=== PATIENT | male | born 1970 | race Caucasian/White ===

== ENCOUNTER 2023-02-23 19:42 | Emergency (ER) | payer SELFPAY ==
[2023-02-23 19:48] VITALS: BP 166/99; PULSE 81; RESP 18; TEMP 36.6; O2SAT 96; BMI 29.5
[2023-02-23 20:00] VITALS: BP 161/109; PULSE 83; RESP 18; O2SAT 96
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
[2023-02-23 20:10] VITALS: BP 161/94; PULSE 85; RESP 18; O2SAT 95
[2023-02-23 20:20] VITALS: BP 170/92; PULSE 79; RESP 18; O2SAT 94
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
--- NOTE | 2023-02-23 21:40 | ED.NURSE ---
Pt continues to remove blood pressure cuff and pulse oximeter. Pt asked to keep BP cuff and pulse oximeter on, in order to obtain vital signs every 10 minutes d/t TTA protocol. Pt states BP cuff is itching and will try to keep cuff on.
[2023-02-23 21:50] VITALS: BP 158/118; PULSE 84; RESP 18; O2SAT 96
[2023-02-23 22:00] VITALS: BP 178/99; PULSE 83; RESP 18; O2SAT 94
--- NOTE | 2023-02-23 22:37 | ED.NURSE ---
Pt has ortho follow-up appointment on 02/25 in [facility] at [address] Lanza.
--- NOTE | 2023-02-23 22:45 | ED.NURSE ---
Orthoglass splint applied by . Crutches adjusted and given to pt. Pt tolerating. Pt given work note.
== END 2023-02-23 22:55 | disposition home or self-care (01) ==
PROVIDERS: Emergency Provider Emergency Medicine
DX: S82.892A Other fracture of left lower leg, initial encounter for closed fracture (principal); S09.90XA Unspecified injury of head, initial encounter; S89.92XA Unspecified injury of left lower leg, initial encounter; V00.848A Other accident with standing micro-mobility pedestrian conveyance, initial encounter
CPT/HCPCS: 29515; 70450; 73562; 73610; 99283; 99284; 99285; 99291

== ENCOUNTER 2024-02-28 16:42 | Emergency (ER) | payer MEDICAID, SELFPAY ==
[2024-02-28] VITALS (46 sets, daily range): BP systolic 102–134; BP diastolic 53–102; PULSE 58–131; RESP 18–20; TEMP 36.7; O2SAT 88–96
[2024-02-28 17:13] LABS: Lactate* 1.9 mmol/L (0.5-1.9)
[2024-02-28 17:14] LABS: Basophils Percent Auto 0.2 % (0.0-3.0); Eosinophils Percent Auto 1.5 % (0.0-7.0); Hematocrit 36.7 % (37.0-53.0); Hemoglobin* 12.3 gm/dL (13.5-17.5); Immature Granulocytes Pct Auto 0.8 %; Mean Corpuscular HGB Conc 34 gm/dL (32-36); Mean Corpuscular Hemoglobin 30 pg (26-34); Mean Corpuscular Volume 88 fL (80-100); Monocytes Percent Auto 8.8 % (0.0-11.0); Neutrophils Percent Auto 66.7 % (42.0-72.0); Platelet Count* 429 K/uL (140-440); RDW Coefficient of Variation % 12.9 % (11.5-15.5); Red Blood Count 4.15 m/uL (4.30-5.90); White Blood Count* 16.86 K/uL (4.50-11.00)
--- NOTE | 2024-02-28 17:17 | ED_ITS ---
HPI - General Adult General Date Seen: 02/28/24 Chief complaint: Post Op Complication Stated complaint: received call to go to hospital [facility] from [facility] Time Seen by Provider: 02/28/24 16:59 Source: patient Mode of arrival: ambulatory Limitations: no limitations History of Present Illness HPI narrative: Patient is a 53-year-old male presenting to the emergency department because he was told to told to return to [facility] immediately for concerns of infection on his new aortic valve. He states he received a phone call was 20 minutes prior to arrival he needs to return to [facility] immediately because there is concerned he has infection on his new valve. He was just discharged from there about 2 or 3 hours ago. He states do not have a ride to [facility] certain came to [facility] instead because he lives in the area. Denies fevers, chills, shortness of breath. Has occasional episodes of chest pain but currently is pain-free. Does have a history of irregular heart rate that he states has not required cardioversion before but has improved with medications. Related Data Home Medications ?Medication ?Instructions ?Recorded ?Confirmed aspirin 81 mg capsule 81 mg PO DAILY 02/23/23 05/08/23 Allergies Allergy/AdvReac Type Severity Reaction Status Date / Time atorvastatin Allergy Unknown Verified 05/08/23 10:34 lisinopril Allergy Unknown Verified 05/08/23 10:34 [facility] Medical History History of myocardial infarction ?I25.2 - Old myocardial infarction (ICD-10) Surgical History History of heart artery stent (~2016) ?Z95.5 - Presence of coronary angioplasty implant and graft (ICD-10) Social History (Reviewed 05/08/23 @ 10:34 by Soha Mcneil ~ [facility]) Narrative: does not have regular exercise regimen no PCP, fired from [employer] [facility] due to bad bill single, unloads trucks, [place], 1 child social drinker- 10/week tobacco abuse- 10/day, hx 25 pack years Smoking Status: Current every day smoker What tobacco products do you use: cigarettes Smoking packs per day: 1 Smoking cigarettes per day: 20.0 Years smoked: 30 Smoking pack-years: 30.00 Do you use any of these nicotine containing products: None Second hand tobacco smoke exposure: No How often do you have a drink containing alcohol: 4 or more times a week AUDIT-C Alcohol total score: 4 Non-prescribed substance use: marijuana (any form) service: No Exam Narrative: Exam Narrative: Const: Well-nourished, Well-developed, in no distress Eyes: PERRL, no conjunctival injection, and symmetrical lids HENT: Atraumatic external nose and ears. Moist mucous membranes. Neck: Symmetric, trachea midline, No thyromegaly. CVS: Irregular in tachycardic rhythm No murmurs or gallops. Peripheral pulses 2+ and equal in all extremities RESP: Unlabored respiratory effort. Clear to auscultation bilaterally. GI: Nontender/Nondistended, No rebound or guarding. MSK:Extremities w/o deformity, Normal Active ROM Skin: Warm, Dry. Well-healing surgical scar Neuro: Normal Muscle tone, No focal neurological deficits. Psych: Awake, Alert, & Oriented x3. Appropriate mood and affect. Const: Vital Signs, click to edit/add: Vital Signs - 24 hr 02/28/24 16:55 02/28/24 16:58 02/28/24 16:59 Temperature 98.0 F Pulse Rate 113 H 113 H Pulse Rate [Left P ulse Oximeter] 131 H Respiratory Rate 18 Blood Pressure 127/92 H Blood Pressure [Le ft Upper Arm] 127/92 H Pulse Oximetry 95 95 95 Oxygen Delivery Me thod Room Air 02/28/24 17:00 02/28/24 17:07 02/28/24 17:15 Temperature Pulse Rate 108 H 108 H 94 Pulse Rate [Left P ulse Oximeter] Respiratory Rate Blood Pressure 115/80 Blood Pressure [Le ft Upper Arm] Pulse Oximetry 94 95 93 Oxygen Delivery Me thod 02/28/24 17:17 02/28/24 17:30 02/28/24 17:32 Temperature Pulse Rate 101 H 96 91 Pulse Rate [Left P ulse Oximeter] Respiratory Rate Blood Pressure 133/77 112/67 Blood Pressure [Le ft Upper Arm] Pulse Oximetry 93 92 93 Oxygen Delivery Me thod 02/28/24 17:45 02/28/24 17:47 02/28/24 18:00 Temperature Pulse Rate 111 H 122 H 104 H Pulse Rate [Left P ulse Oximeter] Respiratory Rate Blood Pressure 102/67 Blood Pressure [Le ft Upper Arm] Pulse Oximetry 95 94 91 Oxygen Delivery Me thod 02/28/24 18:02 02/28/24 18:15 02/28/24 18:17 Temperature Pulse Rate 99 104 H 95 Pulse Rate [Left P ulse Oximeter] Respiratory Rate Blood Pressure 130/83 126/75 Blood Pressure [Le ft Upper Arm] Pulse Oximetry 95 95 94 Oxygen Delivery Me thod 02/28/24 18:30 02/28/24 18:32 02/28/24 18:33 Temperature Pulse Rate 93 78 96 Pulse Rate [Left P ulse Oximeter] Respiratory Rate Blood Pressure 127/68 Blood Pressure [Le ft Upper Arm] Pulse Oximetry 95 94 94 Oxygen Delivery Me thod 02/28/24 18:45 02/28/24 18:47 02/28/24 19:00 Temperature Pulse Rate 73 70 100 Pulse Rate [Left P ulse Oximeter] Respiratory Rate Blood Pressure 105/53 L Blood Pressure [Le ft Upper Arm] Pulse Oximetry 94 94 91 Oxygen Delivery Me thod Course Vital Signs Vital signs: Initial Vital Signs Temperature 98.0 F 02/28/24 16:55 Temperature Source Temporal Artery Scan 02/28/24 16:55 Pulse Rate 131 H 02/28/24 16:55 Pulse Rhythm Regular 02/28/24 16:55 Pulse Strength 3+ Normal 02/28/24 16:55 Respiratory Rate 18 02/28/24 16:55 Blood Pressure 127/92 H 02/28/24 16:55 Blood Pressure Mean 103 02/28/24 16:55 Blood Pressure Position Semi-Fowlers 02/28/24 16:55 Pulse Oximetry 95 02/28/24 16:55 Oxygen Delivery Method Room Air 02/28/24 16:55 Vital Signs Temperature 98.0 F 02/28/24 16:55 Pulse Rate 131 H 02/28/24 16:55 Respiratory Rate 18 02/28/24 16:55 Blood Pressure 127/92 H 02/28/24 16:55 Pulse Oximetry 95 02/28/24 16:55 Oxygen Delivery Method Room Air 02/28/24 16:55 Temperature 98.0 F 02/28/24 16:55 Pulse Rate 100 02/28/24 19:00 Respiratory Rate 18 02/28/24 16:55 Blood Pressure 105/53 L 02/28/24 18:47 Pulse Oximetry 91 08/16/24 19:00 Oxygen Delivery Method Room Air 02/28/24 16:55 Medications Administered Medications: Generic Name Dose Route Start Last Admin Trade Name Freq PRN Reason Stop Dose Admin Diltiazem HCl 125 mg/ Sodium 125 mls @ 5 mls/hr 02/28/24 17:45 02/28/24 18:35 Chloride IVPB 5 mls/hr .TITRATE LYNETTE Administration Protocol Heparin Sodium/Dextrose 25,000 unit in 500 mls @ 0 mls/hr 02/28/24 18:00 02/28/24 18:35 Heparin IV 1,000 unit/hr .Q0M LYNETTE 20 mls/hr Administration Protocol Per Protocol Discontinued Medications Generic Name Dose Route Start Last Admin Trade Name Freq PRN Reason Stop Dose Admin Heparin Sodium (Porcine) 4,000 unit 02/28/24 17:51 02/28/24 18:22 Heparin 5,000 Unit/0.5 Ml Inj IVP 02/28/24 17:52 4,000 unit ONCE ONE Administration Vancomycin/PEG/NADA/Lysine/Water 1.75 gm in 350 mls @ 200 mls/hr 02/28/24 17:43 02/28/24 18:33 Vancomycin 1.75 Gm/350 Ml IVPB 02/28/24 19:27 200 mls/hr ONCE ONE Administration Protocol Ceftriaxone Sodium 2 gm/ 100 mls @ 200 mls/hr 02/28/24 17:43 02/28/24 19:47 Sodium Chloride IVPB 02/28/24 17:44 Infused ONCE ONE Infusion Medical Decision Making MDM Narrative Medical decision making narrative: Patient is a 53-year-old male presenting for concern of a valve infection and a flutter. EKG, troponin, CBC, BMP all ordered.Was able to speak to the on-call cardiothoracic surgeon at [facility] he states from his understanding it was the [place] valve that appeared infected and not the new valve that was placed. He does agree that the patient should be transferred. I then spoke to Cardiology about the patient is a flutter. He states the patient had a flutter prior to discharge it was actually relatively tacky with it. He was given amiodarone there but this time recommends doing heparin and rate control. I will also start the patient on empiric antibiotics for endocarditis in this includes vancomycin and Rocephin. EKG returns showing a flutter with a rate of 129 beats per minute. I do not see any obvious signs of a STEMI. The 2 May have some slight elevation but concerned he just had bypass surgery is unlikely to be blocked again so quickly. I informed the chiropractic neurologist of the EKG findings and my interpretation of it and he agrees with me. The chiropractic neurologist did not personally view the EKG. Troponins at 0.14 but again he just had surgery this is likely still from the surgery. Patient is not having any chest pain at this time. Was start him on Cardizem. White blood cell count was 16.86 doses consistent with his previous white blood cell count this morning at [facility]. Lab Data Labs: Lab Results 02/28/24 02/28/24 02/28/24 Range/Units 17:00 17:07 17:51 WBC 16.86 H Cancelled (4.50-11.00) K/uL RBC 4.15 L Cancelled (4.30-5.90) m/uL Hgb 12.3 L Cancelled (13.5-17.5) gm/dL Hct 36.7 L Cancelled (37.0-53.0) % MCV 88 Cancelled (80-100) fL MCH 30 Cancelled (26-34) pg MCHC 34 Cancelled (32-36) gm/dL RDW Coeff of Michelle 12.9 (11.5-15.5) % Plt Count 429 Cancelled (140-440) K/uL Neut % (Auto) 66.7 (42.0-72.0) % Lymph % (Auto) 22.0 (20-44) % Morrill % (Auto) 8.8 (0.0-11.0) % Eos % (Auto) 1.5 (0.0-7.0) % Baso % (Auto) 0.2 (0.0-3.0) % Neut # (Auto) 11.20 H (1.7-7.0) K/uL Lymph # (Auto) 3.70 H (0.90-2.90) K/uL Morrill # (Auto) 1.50 H (0.00-0.90) K/UL Eos # (Auto) 0.30 (0.00-0.50) K/uL Baso # (Auto) 0.00 (0.00-0.30) K/uL Abs Immat Gran (auto) 0.10 (0.00-0.30) K/uL Imm/Tot Granulo (auto) 0.8 % INR 1.08 (0.91-1.10) APTT 29 (23-33) Seconds Sodium 136 (135-149) mmol/L Potassium 3.6 (3.6-5.1) mmol/L Chloride 101 (96-114) mmol/L Carbon Dioxide 27 (20-32) mmol/L Anion Gap 8 (7-15) mEq/L BUN 17 (7-30) mg/dL Creatinine 0.8 (0.5-1.5) mg/dL Estimated GFR 106 ml/min Glucose 142 H (60-115) mg/dL Lactate 1.9 (0.5-1.9) mmol/L Calcium 9.2 (8.4-10.6) mg/dL POC Troponin I 0.14 H (0.01-0.04) ng/ml 02/28/24 Range/Units 19:22 WBC (4.50-11.00) K/uL RBC (4.30-5.90) m/uL Hgb (13.5-17.5) gm/dL Hct (37.0-53.0) % MCV (80-100) fL MCH (26-34) pg MCHC (32-36) gm/dL RDW Coeff of Michelle (11.5-15.5) % Plt Count (140-440) K/uL Neut % (Auto) (42.0-72.0) % Lymph % (Auto) (20-44) % Morrill % (Auto) (0.0-11.0) % Eos % (Auto) (0.0-7.0) % Baso % (Auto) (0.0-3.0) % Neut # (Auto) (1.7-7.0) K/uL Lymph # (Auto) (0.90-2.90) K/uL Morrill # (Auto) (0.00-0.90) K/UL Eos # (Auto) (0.00-0.50) K/uL Baso # (Auto) (0.00-0.30) K/uL Abs Immat Gran (auto) (0.00-0.30) K/uL Imm/Tot Granulo (auto) % INR (0.91-1.10) APTT (23-33) Seconds Sodium (135-149) mmol/L Potassium (3.6-5.1) mmol/L Chloride (96-114) mmol/L Carbon Dioxide (20-32) mmol/L Anion Gap (7-15) mEq/L BUN (7-30) mg/dL Creatinine (0.5-1.5) mg/dL Estimated GFR ml/min Glucose (60-115) mg/dL Lactate (0.5-1.9) mmol/L Calcium (8.4-10.6) mg/dL POC Troponin I 0.13 H (0.01-0.04) ng/ml ECG Data Attestation: I personally reviewed and interpreted this ECG as follows: Prior ECG tracings: not available for review Interpretation: He EKG at 16:57 atrial flutter with variable AV block rate of 129 beats per minute, normal axis, no obvious ST or T-wave abnormalities. I disagree with the computer interpretation I do not see signs of a STEMI EKG at 19:16 a father with then AV block with a rate 112 beats per minute, normal axis, no ST or T-wave abnormalities. I disagree with the computer interpretation and not see signs of a STEMI Discharge Plan Discharge Clinical Impression: Atrial flutter Qualifiers: Atrial flutter type: unspecified Qualified Code(s): I48.92 - Unspecified atrial flutter Patient Disposition: [facility] Condition: Stable Prescriptions: No Action aspirin 81 mg capsule 81 mg PO DAILY Follow Up/Referrals: Provider,Not a Local [Primary Care Provider] - Stand Alone Forms: [employer] Info Instructions
[2024-02-28 17:18] LABS: Slide Review Reflex No
[2024-02-28 17:26] LABS: Troponin, Point-of-Care* 0.14 ng/ml (0.01-0.04)
[2024-02-28 17:30] LABS: Chloride* 101 mmol/L (96-114); Potassium* 3.6 mmol/L (3.6-5.1); Sodium* 136 mmol/L (135-149)
[2024-02-28 17:33] LABS: Anion Gap 8 mEq/L (7-15); Blood Urea Nitrogen* 17 mg/dL (7-30); Carbon Dioxide* 27 mmol/L (20-32); Creatinine* 0.8 mg/dL (0.5-1.5); Estimated Glomerular Filt Rate 106 ml/min; Glucose* 142 mg/dL (60-115)
[2024-02-28 17:34] LABS: Calcium* 9.2 mg/dL (8.4-10.6)
[2024-02-28 18:22] LABS: INR 1.08 (0.91-1.10); Prothrombin Time 14.6 Seconds
[2024-02-28] MEDS: HEPARIN 5,000 UNIT/0.5 ML INJ 4000 UNIT IVP (18:22)
[2024-02-28 18:23] LABS: Partial Thromboplastin Time* 29 Seconds (23-33)
[2024-02-28] MEDS: VANCOMYCIN 1.75 GM/350 ML 1.75 GM/350 ML PIGGYBACK IVPB (18:33)
[2024-02-28] MEDS: dilTIAZem HCL 125 MG in 0.9 % SODIUM CHLORIDE 100 ml 100 ML IVPB (18:35)
[2024-02-28] MEDS: HEPARIN 25,000 UNIT/500 ML BAG 20 UNIT IV (18:35)
[2024-02-28] MEDS: cefTRIAXone 2 GM in 0.9 % SODIUM CHLORIDE Mini-bag 100 ML IVPB (18:49)
[2024-02-28 19:48] LABS: Troponin, Point-of-Care* 0.13 ng/ml (0.01-0.04)
== END 2024-02-28 22:03 | disposition short-term general hospital (02) ==
PROVIDERS: Emergency Provider Student in an Organized Health Care Education/Training Program
DX: I97.190 Other postprocedural cardiac functional disturbances following cardiac surgery (principal)
CPT/HCPCS: 36415; 80048; 83605; 84484; 85025; 85027; 85610; 85730; 93005; 96365; 96368; 96375; 99283; 99285; 99291; J0696; J1644; J3372; J3490

== ENCOUNTER 2024-02-28 21:55 | Outpatient (CLI) | payer MEDICAID, SELFPAY | END 2024-02-28 21:56 | disposition home or self-care (01) | LOC: AMB 02-29 23:50 | PROVIDERS: Visit Provider Family Medicine | DX: I48.92 Unspecified atrial flutter (principal) | CPT/HCPCS: A0425; A0434 ==